=== PATIENT | male | born 1980 | race American Indian/Alaskan Native ===

== ENCOUNTER 2017-04-23 01:31 | Emergency (ER) | payer BC ==
[2017-04-23] MEDS ORDERED: BOOSTRIX IM ONE (03:26)
[2017-04-23] MEDS ORDERED: MOTRIN PO ONE (03:26)
--- NOTE | 2017-04-23 04:01 | XRay Report ---
FINAL REPORT EXAM: XR HAND 3+V LT HISTORY: pain OF LEFT HAND /LACERATION COMPARISON: None available. FINDINGS: Three views of left hand obtained. There is a comminuted fracture of the distal 3rd phalangeal tuft. Tiny bony fragments are present within the soft tissues. Tiny foreign bodies not excluded. Remaining bony structures are intact. Joint spaces are preserved. IMPRESSION: Comminuted fracture of the distal 3rd phalangeal tuft. There are tiny bony fragments in the soft tissues. Tiny foreign body is not excluded.
--- NOTE | 2017-04-23 04:13 | Emergency Department Report ---
ED Laceration HPI - HPI Chief Complaint: Laceration/Recheck/Suture Stated Complaint: LT LAC TO MIDDLE FINGER/ RING FINGER Time Seen by Provider: 04/23/17 03:50 Occurred When: Today Location: Upper Extremity Severity: mild Tetanus Status: Not up to Date Laceration Symptoms: Yes Pain, No Foreign Body Sensation, No Numbness, No Weakness Other History: This is a 36-year-old male nontoxic, well nourished in appearance , no acute signs of distress presents to the ED with c/o of third and fourth finger laceration. Patient states that he was at work changing a fork and a fork lift her which cut his finger. He denies any numbness, tingling, fever, chills, nausea, vomiting, headache or stiff neck. Patient denies tetanus update. Patient denies any drug allergies or significant past medical history. ED Review of Systems ROS: Stated complaint: LT LAC TO MIDDLE FINGER/ RING FINGER Other details as noted in HPI Constitutional: denies: chills, fever Eyes: denies: eye pain, eye discharge, vision change ENT: denies: ear pain, throat pain Respiratory: denies: cough, shortness of breath, wheezing Cardiovascular: denies: chest pain, palpitations Endocrine: no symptoms reported Gastrointestinal: denies: abdominal pain, nausea, diarrhea Genitourinary: denies: urgency, dysuria Musculoskeletal: denies: back pain, joint swelling, arthralgia Skin: denies: rash, lesions Neurological: denies: headache, weakness, paresthesias Psychiatric: denies: anxiety, depression Hematological/Lymphatic: denies: easy bleeding, easy bruising ED Past Medical Hx - Past Medical History Previous Medical History?: No - Surgical History Past Surgical History?: No - Social History Smoking Status: Current Every Day Smoker Substance Use Type: Alcohol - Medications Home Medications: Home Medications Medication Instructions Recorded Confirmed Last Taken Type Sulfamethoxazole/Trimethoprim 1 each PO BID #14 tablet 04/23/17 Unknown Rx [Bactrim DS TAB] traMADol [Ultram] 50 mg PO Q6HR PRN #12 tablet 04/23/17 Unknown Rx Laceration Physical Exam - Exam General: Vital signs noted. No distress. Alert and acting appropriately. GENERAL: The patient is a well-developed, well-nourished in no apparent distress. Patient is alert and acting appropriately for age. Alert and oriented 3, no apparent distress, normal gait, atraumatic. HEENT: Head is normocephalic and atraumatic. PERRL, Extraocular muscles are intact. Pupils are equal, round, and reactive to light and accommodation. Nares appeared normal. Mouth is well hydrated and without lesions. Mucous membranes are moist. Posterior pharynx clear of any exudate or lesions. Mouth is well hydrated and without lesions. Tonsils not erythematous or swollen. Uvula midline. Tongue elevated. Mucous members are moist. Posterior pharynx clear, no exudate or lesions. Patent airways. NECK: Supple. No carotid bruits. No lymphadenopathy or thyromegaly.nontender. No meningitic signs are noted. LUNGS: Clear to auscultation. Non labor breathing. No intercostal retractions. Symmetrical with respiration, no wheezing, no rales, or crackles. HEART: Regular rate and rhythm without murmur, rubs or gallops. No reproducible. S1, S2 present, regular rate and rhythm without murmur, no rubs, no gallops. ABDOMEN: Soft, nontender, and nondistended. Positive bowel sounds. No hepatosplenomegaly was noted. No guarding or rebound tenderness, negative epigastric bruit. Negative psoas sign, negative noel sign, negative McBurneys sign EXTREMITIES: Without any cyanosis, clubbing, rash, lesions or edema. Peripheral pulses intact. Capillary refill less than 2 seconds. Full range of motion bilaterally. NEUROLOGIC: Cranial nerves II through XII are grossly intact. Alert and oriented x 3. Normal gait. Symmetrical strength and sensation. Reflexes 2+ throughout. Cerebellar testing normal. GCS score of 15. PSYCHIATRIC: Normal affect with no suicidal or homicidal ideations. Skin: One centimeters superficial laceration to third and fourth distal phalange. No foreign body noted. Normal capillary refill. Neurovascular intact. Normal sensation. Wound Length (cm): 1 Laceration Location: Upper Extremity Laceration Exam: Yes Normal Distal CMS, No Foreign Body, No Exposed Tendon, Vessel, or Nerve, No Tendon Injury ED Course Vital Signs 04/23/17 04/23/17 01:49 03:57 Temperature 98.8 F Pulse Rate 90 Respiratory 18 18 Rate Blood Pressure 153/99 O2 Sat by Pulse 99 Oximetry - Reevaluation(s) Reevaluation #1: 04/23/17 04:09 Patient is speaking in full sentences with no signs of distress noted. Reevaluation #2: 04/23/17 05:15 Post splint assessment: Patient denies numbness. Cap refill <2 seconds. Neurovasulcar intake. Able to move digits. Normal sensations. - Laceration /Wound Repair Left Finger Wound Location: upper extremity (left third and fourth digit) Wound Length (cm): 1 Wound's Depth, Shape: superficial Wound Explored: clean Irrigated w/ Saline (ccs): 40 Betadine Prep?: Yes Wound Repaired With: sutures, Dermabond Layer Closure?: No Deep Layer Suture Size/Type: 5:0, gut (plain) Number Deep Layer Sutures: 2 Sterile Dressing Applied?: Yes Progress: Under sterile field, I used Betadine to clean the area. I then used 40 mL of normal saline to flush the area. I then used a 5-0 Plain gut to suture the deep laceration of the 3rd digit. Number of stitches 2. I then used dermabond to superficial area of the lacerations of the 3rd and 4th digits. I then applied a sterile 4 x 4 with tape. Minimal bleeding noted but is under control. Patient tolerated procedure well with no signs of distress. ED Medical Decision Making - Medical Decision Making This is a 36-year-old male that presents with laceration. Patient is stable and was examined by me. X-ray has been obtained and dictated by a radiologist with impression of third phalange tuft fracture. Patient received a silver metal finger splint. Laceration has been repaired with Dermabond. Patient was instructed to Rice therapy. Patient received tetanus booster in the ED. Patient was also instructed to Follow-up with a orthopedic doctor in 3-5 days or if symptoms worsen and continue return to emergency room as soon as possible. At time of discharge, the patient does not seem toxic or ill in appearance. No acute signs of distress noted. Patient agrees to discharge treatment plan of care. No further questions noted by the patient. Critical care attestation.: If time is entered above; I have spent that time in minutes in the direct care of this critically ill patient, excluding procedure time. ED Disposition Clinical Impression: Laceration Finger fracture Qualifiers: Encounter type: initial encounter Finger: middle finger Fracture type: closed Phalanx: distal Fracture alignment: nondisplaced Laterality: left Qualified Code (s): S62.663A - Nondisplaced fracture of distal phalanx of left middle finger, initial encounter for closed fracture Disposition: DC-01 TO HOME OR SELFCARE Is pt being admited?: No Does the pt Need Aspirin: No Condition: Stable Instructions: Sulfamethoxazole/Trimethoprim (By mouth), Tramadol (By mouth), Finger Fracture in Children (ED), Laceration (ED), Skin Adhesive Care (ED) Additional Instructions: Follow-up with a orthopedic doctor in 3-5 days or if symptoms worsen and continue return to emergency room as soon as possible. Do not operate any machinery when taking Ultram due to drowsiness. Prescriptions: Sulfamethoxazole/Trimethoprim [Bactrim DS TAB] 1 each PO BID #14 tablet traMADol [Ultram] 50 mg PO Q6HR PRN #12 tablet PRN Reason: Pain Referrals: PRIMARY CAREMD [Primary Care Provider] - 3-5 Days ROBERT CASTANEDA MD [Staff Physician] - 3-5 Days [facility] [Outside] - 3-5 Days [facility] [Outside] - 3-5 Days Forms: Work/School Release Form(ED)
[2017-04-23 06:09] VITALS: BP 148/91
== END 2017-04-23 06:09 | disposition home or self-care (01) ==
LOC: ED 01:31
DX: S61.213A Laceration without foreign body of left middle finger without damage to nail, initial encounter (principal); S61.215A Laceration without foreign body of left ring finger without damage to nail, initial encounter; F17.200 Nicotine dependence, unspecified, uncomplicated; W26.8XXA Contact with other sharp object(s), not elsewhere classified, initial encounter; Y93.89 Activity, other specified; Y92.89 Other specified places as the place of occurrence of the external cause; Y99.8 Other external cause status
CPT/HCPCS: 90471; 90715